=== PATIENT | female | born 1975 | race Caucasian/White ===

== ENCOUNTER 2023-03-29 08:41 | Inpatient (IN) | payer BC, SELFPAY ==
[2023-03-29] MEDS ORDERED: PROPOFOL 200 MG/20 ML VIAL ONE (08:44)
[2023-03-29] MEDS ORDERED: Dexamethasone 20 MG/5 ML VIAL ONE (08:44)
[2023-03-29] MEDS ORDERED: PHENYLEPHRINE-NS 100 MCG/ML 10 ML SYRINGE ONE (08:44)
[2023-03-29] MEDS ORDERED: Ondansetron PF 4 MG/2 ML Vial ONE (08:44)
[2023-03-29] MEDS ORDERED: Lidocaine 1% PF 5 ML VIAL ONE (08:44)
[2023-03-29] MEDS ORDERED: Rocuronium Bromide 10 MG/ML (10ML VIAL) ONE (08:44)
[2023-03-29] MEDS ORDERED: hydrALAZINE 20 MG/ML VIAL SLOW IVP PRN (09:45)
[2023-03-29] MEDS ORDERED: Communication Order-Pharmacy FS ONE (09:45)
[2023-03-29] MEDS ORDERED: niCARdipine 25 MG in Sodium Chloride 0.9% 250 ML 250 ML IVPB PRN (09:45)
[2023-03-29] MEDS ORDERED: Labetalol HCl 100 MG/20 ML VIAL SLOW IVP PRN (09:45)
[2023-03-29 10:30] VITALS: BMI 23.1
[2023-03-29] MEDS: Sodium Chloride 0.9% 1,000 ML IV SCH ×2 (10:30→23:18)
[2023-03-29] MEDS: Acetaminophen 325 MG TAB PO PRN ×2 (11:08→20:29)
[2023-03-29 15:47] LABS: #Monocytes 0.1 thou/uL (0.11-0.59); #Neutrophils 9.6 thou/uL (1.40-6.50); %Basophils 0.2 % (0.0-1.0); %Lymphocytes 4.3 % (21.0-51.0); %Neutrophils 94.1 % (42.0-75.0); Hemoglobin 13.5 g/dL (12.0-16.0); Mean Corpuscular HGB CONC 32.9 g/dL (32.0-36.0); Mean Corpuscular Hemoglobin 29.9 pg (27.0-31.0); Mean Corpuscular Volume 90.7 fl (78.0-98.0); Mean Platelet Volume 9.8 fL (7.4-10.4); Platelet Count 262 10x3/uL (130-400); RBC Distribution Width 12.8 % (11.5-14.5); Red Blood Cell (RBC) Count 4.52 mill/uL (4.20-5.40); White Blood Cell (WBC) Count 10.2 10x3/uL (4.8-10.8)
[2023-03-29 16:05] LABS: PTT 31.4 sec (22.9-36.1); Prothrombin Time 13.5 sec (12.0-14.7)
[2023-03-29 16:06] LABS: D-Dimer Test 0.55 *mcg/mL (0.27-0.43)
[2023-03-29 16:10] LABS: ALT (SGPT) 15 U/L (8-55); AST (SGOT) 19 U/L (5-34); Albumin 4.1 g/dL (3.5-5.0); Alkaline Phosphatase 61 U/L (40-110); Anion Gap 11 mmol/L (10-20); BUN (Urea Nitrogen) 18 mg/dL (7.0-18.7); Bilirubin, Total 0.3 mg/dL (0.2-1.2); Calc. Creatinine Clearance 92 mL/min (70-130); Calcium 8.7 mg/dL (7.8-10.44); Carbon Dioxide 21 mmol/L (22-29); Chloride 109 mmol/L (98-107); Estimated GFR 89; Globulin 2.9 g/dL (2.4-3.5); Glucose 147 mg/dL (70-105); Potassium 3.5 mmol/L (3.5-5.1); Sodium 137 mmol/L (136-145)
[2023-03-29 16:27] LABS: Homocysteine 8.15 umol/L (5.08-15.39); Thyroid Stimulating Hormone 2.8809 uIU/mL (0.35-4.94)
[2023-03-29 16:32] LABS: Bacteria/HPF None Seen HPF (None Seen); Bilirubin Negative (Negative); Blood, Urine Negative (Negative); CAUTI Indications for Culture Alt mental st,lethar; Clarity Clear (Clear); Glucose, Urine (Dipstick) Normal (Negative); Ketone, Urine 40 mg/dL (Negative); Leukocyte Negative Leu/uL (Negative); Nitrite Negative (Negative); Protein, Urine (Dipstick) Negative (Neg-Trace); RBC/HPF 0-3 HPF (0-3); Specific Gravity, Urine 1.032 (1.002-1.036); Squamous Epithelial None Seen HPF (0-3); Urobilinogen Normal mg/dL (Less than 2); WBC/HPF 0-3 HPF (0-3); pH, Urine 5.5 (5.0-9.0)
[2023-03-29 16:35] LABS: Urine Culture Reflex No No
[2023-03-29 16:39] LABS: Amphetamine Not Detected (NotDetected); Barbiturates Screen Not Detected (NotDetected); Benzodiazepine Screen Not Detected (NotDetected); Cocaine Metabolite Screen Not Detected (NotDetected); Methadone Not Detected (NotDetected); Methamphetamine Not Detected (NotDetected); Opiate Screen Not Detected (NotDetected); Oxycodone Screen Not Detected (NotDetected); Phencyclidine (PCP) Not Detected (NotDetected); THC/Cannabinoid Screen Not Detected (NotDetected); Tricyclic Screen Not Detected (NotDetected)
[2023-03-29] MEDS ORDERED: Ondansetron PF 4 MG/2 ML Vial IVP PRN (19:37)
[2023-03-29] MEDS: Atorvastatin Calcium 40 MG TAB PO SCH (20:29)
[2023-03-30] MEDS: Acetaminophen 325 MG TAB PO PRN ×3 (03:34→16:25)
[2023-03-30 04:33] LABS: #Monocytes 1.2 thou/uL (0.11-0.59); #Neutrophils 12.6 thou/uL (1.40-6.50); %Basophils 0.2 % (0.0-1.0); %Lymphocytes 8.2 % (21.0-51.0); %Neutrophils 83.1 % (42.0-75.0); Hemoglobin 12.5 g/dL (12.0-16.0); Mean Corpuscular HGB CONC 33.2 g/dL (32.0-36.0); Mean Corpuscular Hemoglobin 29.8 pg (27.0-31.0); Mean Corpuscular Volume 89.5 fl (78.0-98.0); Mean Platelet Volume 9.7 fL (7.4-10.4); Platelet Count 243 10x3/uL (130-400); White Blood Cell (WBC) Count 15.1 10x3/uL (4.8-10.8)
[2023-03-30 04:57] LABS: Anion Gap 13 mmol/L (10-20); BUN (Urea Nitrogen) 14 mg/dL (7.0-18.7); Calc. Creatinine Clearance 89 mL/min (70-130); Calcium 8.7 mg/dL (7.8-10.44); Carbon Dioxide 19 mmol/L (22-29); Cardiac Risk 2.1 (Less than 4.5); Chloride 109 mmol/L (98-107); Cholesterol 150 mg/dl (< 200 Desired); Estimated GFR 86; Glucose 98 mg/dL (70-105); HDL Cholesterol 71 mg/dL (>60 Neg Risk); LDL Cholesterol, Calculated 62 mg/dL; Potassium 3.9 mmol/L (3.5-5.1); Sodium 137 mmol/L (136-145); Triglycerides 86 mg/dL (Less than 150)
[2023-03-30] MEDS: Aspirin 300 MG Suppository PR SCH (09:45)
[2023-03-30] MEDS: Aspirin 325 mg Enteric Coated Tablet PO SCH (09:56)
[2023-03-30] MEDS: Sodium Chloride 0.9% 1,000 ML IV SCH ×2 (13:02→23:51)
[2023-03-30] MEDS ORDERED: Artificial Tear Sol 15 ML BOT EA EYE PRN (14:49)
[2023-03-30] MEDS: Famotidine/PF 20 mg/2ml Vial SLOW IVP SCH (20:25)
[2023-03-30] MEDS: Atorvastatin Calcium 40 MG TAB PO SCH (20:25)
[2023-03-31] MEDS: Aspirin 300 MG Suppository PR SCH (08:51)
[2023-03-31] MEDS: Thyroid 60 MG TAB PO SCH (08:52)
[2023-03-31] MEDS: Aspirin 325 mg Enteric Coated Tablet PO SCH (08:52)
[2023-03-31] MEDS: Famotidine/PF 20 mg/2ml Vial SLOW IVP SCH ×2 (08:53→21:40)
[2023-03-31] MEDS: Sodium Chloride 0.9% 1,000 ML IV SCH (15:33)
[2023-03-31] MEDS ORDERED: Polyvinyl Alcohol 1.4%/Povidone 0.6% Opth Drops EA EYE PRN (16:03)
[2023-03-31] MEDS: Atorvastatin Calcium 40 MG TAB PO SCH (21:40)
[2023-04-01 05:30] LABS: Hemoglobin 12.9 g/dL (12.0-16.0); Mean Corpuscular HGB CONC 33.6 g/dL (32.0-36.0); Mean Corpuscular Hemoglobin 30.1 pg (27.0-31.0); Mean Corpuscular Volume 89.7 fl (78.0-98.0); Mean Platelet Volume 9.7 fL (7.4-10.4); Platelet Count 221 10x3/uL (130-400); RBC Distribution Width 12.6 % (11.5-14.5); Red Blood Cell (RBC) Count 4.28 mill/uL (4.20-5.40); White Blood Cell (WBC) Count 8.6 10x3/uL (4.8-10.8)
[2023-04-01 05:54] LABS: Anion Gap 13 mmol/L (10-20); BUN (Urea Nitrogen) 13 mg/dL (7.0-18.7); Calc. Creatinine Clearance 74 mL/min (70-130); Calcium 9.5 mg/dL (7.8-10.44); Carbon Dioxide 24 mmol/L (22-29); Chloride 106 mmol/L (98-107); Estimated GFR 73; Glucose 118 mg/dL (70-105); Potassium 3.5 mmol/L (3.5-5.1); Sodium 139 mmol/L (136-145)
[2023-04-01] MEDS: Aspirin 325 mg Enteric Coated Tablet PO SCH (10:20)
[2023-04-01] MEDS: Famotidine/PF 20 mg/2ml Vial SLOW IVP SCH ×2 (10:20→22:23)
[2023-04-01] MEDS: Thyroid 60 MG TAB PO SCH (10:23)
[2023-04-01 16:47] LABS: ANA Symphony (Qualitative) Negative (Negative); ANA Symphony (Quantitative) 0.4 Ratio (< 0.7 Negative); Cardiolipin IgG Ab 4.9 GPL-U/mL (<10 Negative); EliA APS New Method **** NEW METHOD ****
[2023-04-01] MEDS: Atorvastatin Calcium 40 MG TAB PO SCH (22:24)
[2023-04-02] MEDS: Aspirin 325 mg Enteric Coated Tablet PO SCH (10:06)
[2023-04-02] MEDS: Famotidine/PF 20 mg/2ml Vial SLOW IVP SCH ×2 (10:06→22:20)
[2023-04-02] MEDS: Thyroid 60 MG TAB PO SCH (10:06)
[2023-04-02] MEDS: Acetaminophen 325 MG TAB PO PRN ×2 (10:08→22:20)
[2023-04-02] MEDS: Atorvastatin Calcium 40 MG TAB PO SCH (22:20)
[2023-04-03] MEDS: Famotidine/PF 20 mg/2ml Vial SLOW IVP SCH (08:52)
[2023-04-03] MEDS: Thyroid 60 MG TAB PO SCH (08:52)
[2023-04-03] MEDS: Aspirin 325 mg Enteric Coated Tablet PO SCH (08:52)
[2023-04-03 12:23] LABS: HEX PHOS LA Tube 1 60.2 SEC; HEX PHOS LA Tube 2 49.1 SEC; Hexagonal Phospholipid Neut 11.1 SEC (0-8.0)
[2023-04-03 15:50] VITALS: BP 119/70; TEMP 98.1
== END 2023-04-03 20:00 | DRG 23 ==
LOC: EDSTATUS 10:18 → CCU 10:21 → NEURO 03-31 13:24
PROVIDERS: ADMIT Neurological Surgery; ATTEND Neurological Surgery
PROC: 03CG3ZZ Extirpation of Matter from Intracranial Artery, Percutaneous Approach (ICD-10-PCS; principal; 2023-03-30)
PROC: B3161ZZ Fluoroscopy of Right Internal Carotid Artery using Low Osmolar Contrast (ICD-10-PCS; 2023-03-30)
PROC: B31R1ZZ Fluoroscopy of Intracranial Arteries using Low Osmolar Contrast (ICD-10-PCS; 2023-03-30)
DX: I63.511 Cerebral infarction due to unspecified occlusion or stenosis of right middle cerebral artery (principal); G93.41 Metabolic encephalopathy; G93.6 Cerebral edema; G81.94 Hemiplegia, unspecified affecting left nondominant side; E03.9 Hypothyroidism, unspecified; R47.01 Aphasia; Z92.82 Status post administration of tPA (rtPA) in a different facility within the last 24 hours prior to admission to current facility
CPT/HCPCS: 36415; 61645; 70450; 70551; 80048; 80053; 80061; 80306; 81001; 83090; 84443; 85025; 85027; 85300; 85303; 85305; 85307; 85379; 85598; 85610; 85730; 86038; 86147; 86225; 93306; C1769; C1894; J0360; J1100; J1650; J2405; J2704; J7050; S0028